=== PATIENT | female | born 1995 ===

== ENCOUNTER 2022-12-01 09:00 | Inpatient (IN) | payer OTHER ==
[~2022-12-01] VITALS: Ht 152.4 cm; Wt 64.9 kg
[2022-12-01] MEDS ORDERED: TRI-SPRINTEC T1 EACH PO (10:54)
== END 2022-12-10 11:31 | disposition home or self-care (01) | DRG 743 ==
LOC: OB/GYN 12-07 09:00 → O/R 12-07 11:38 → OB/GYN 12-07 12:15
PROVIDERS: ADMIT Obstetrics & Gynecology; ATTEND Obstetrics & Gynecology
PROC: 0UT90ZZ Resection of Uterus, Open Approach (ICD-10-PCS; principal; 2022-12-07 12:15)
DX: D25.1 Intramural leiomyoma of uterus (principal); D25.2 Subserosal leiomyoma of uterus; N72 Inflammatory disease of cervix uteri; N84.0 Polyp of corpus uteri; Z20.822 Contact with and (suspected) exposure to COVID-19